=== PATIENT | female | born 1990 | race Caucasian/White ===

== ENCOUNTER 2017-12-01 14:23 | Inpatient (IN) | payer MEDICAID, OTHER ==
[~2017-12-01] VITALS: Ht 160 cm; Wt 54.7 kg
[2017-12-01] MEDS ORDERED: TRAZ-144 PO (14:33)
[2017-12-01] MEDS ORDERED: HYDR50CA10 PO (14:33)
[2017-12-01] MEDS ORDERED: OLAN5TAB2 PO (14:33)
[2017-12-01 14:54] LABS: ANION GAP 3 mmol/L (8-16); CALCIUM, TOTAL 8.6 mg/dL (8.8-10.5); CARBON DIOXIDE 30 mmol/L (22-29); CHLORIDE 103 mmol/L (98-107); CREATININE 0.96 mg/dL (0.60-1.30); GLOMERULAR FILTR. RATE CALC > 60 mL/min (>60); GLUCOSE,RANDOM 71 mg/dL (70-110); POTASSIUM 3.9 mmol/L (3.5-5.1); SODIUM SERUM 136 mmol/L (136-145); UREA NITROGEN, BLOOD 16 mg/dL (7-18)
[2017-12-01 15:03] LABS: ALANINE AMINOTRANSFERASE 24 U/L (12-78); ALBUMIN 3.5 g/dL (3.4-5.0); ALKALINE PHOSPHATASE 64 U/L (46-116); ASPARTATE AMINOTRANSFERASE 24 U/L (15-37); BILIRUBIN,TOTAL 0.3 mg/dL (0.1-1.0); TOTAL PROTEIN, SERUM 7.2 g/dL (6.4-8.2)
[2017-12-01 15:08] LABS: BASOPHILS % (AUTO) 0.9 % (0.0-2.0); EOSINOPHILS % (AUTO) 1.8 % (1.0-6.0); HEMATOCRIT 35.8 % (36-46); LYMPHOCYTES # (AUTO) 2.5 K/uL (1.0-4.8); LYMPHOCYTES % (AUTO) 38.7 % (22.0-44.0); MEAN CORPUSCULAR HEMOGLOBIN 28.9 pg (26.0-34.0); MEAN CORPUSCULAR HGB CONC 33.5 G/dL (31.0-37.0); MEAN CORPUSCULAR VOLUME 86 fL (80-100); MONOCYTES # (AUTO) 0.5 K/uL (0.1-1.0); MONOCYTES % (AUTO) 7.3 % (2.0-9.0); NEUTROPHILS # (AUTO) 3.3 K/uL (1.8-7.7); NEUTROPHILS % (AUTO) 51.3 % (40.0-70.0); PLATELET COUNT (AUTO) 232 K/uL (150-450); RED BLOOD CELL COUNT(AUTO) 4.15 MIL/uL (4.00-5.20); RED CELL DISTRIBUTION WIDTH 14.7 % (11.5-14.5)
[2017-12-01] MEDS ORDERED: HYOSCYAMINE SULFATE 0.125 MG DTAB PO ONE (15:30)
[2017-12-01] MEDS ORDERED: METOCLOPRAMIDE HCL 10 MG TABLET PO ONE (15:30)
[2017-12-01] MEDS ORDERED: HALOPERIDOL 5 MG TABLET PO PRN (15:45)
[2017-12-01] MEDS ORDERED: ZOLPIDEM TARTRATE 10 MG TABLET PO PRN (15:45)
[2017-12-01 16:02] LABS: AMPHET/METH SCREEN,URINE POSITIVE (NEGATIVE); BARBITURATE SCREEN, URINE NEGATIVE (NEGATIVE); BENZODIAZEPINES SCREEN,URINE NEGATIVE (NEGATIVE); CANNABINOID SCREEN,URINE POSITIVE (NEGATIVE); COCAINE SCREEN,URINE NEGATIVE (NEGATIVE); METHADONE SCREEN, URINE NEGATIVE (NEGATIVE); OPIATE SCREEN,URINE NEGATIVE (NEGATIVE)
[2017-12-01 16:04] LABS: PHENCYCLIDINE SCREEN,URINE NEGATIVE (NEGATIVE)
[2017-12-01 16:58] LABS: CHOL/HDL RATIO 1.8 (3.9-5.7); CHOLESTEROL 164 mg/dL (131-200); HDL CHOLESTEROL 90 mg/dL (40-60); LDL CHOL (CALC.) 63 mg/dL (0-130); TRIGLYCERIDES 57 mg/dL (15-150)
[2017-12-01 20:26] VITALS: BP 100/65
[2017-12-01] MEDS: OLANZapine 5 MG TABLET PO SCH (20:30)
[2017-12-01] MEDS: TraZODone HCL 50 MG TABLET PO SCH (20:30)
[2017-12-02 06:19] VITALS: BP 111/56
[2017-12-02] MEDS: LORazepam 2 MG TABLET PO PRN (11:18)
[2017-12-02 16:26] VITALS: BP 106/68
[2017-12-02] MEDS: OLANZapine 5 MG TABLET PO SCH (20:10)
[2017-12-02] MEDS: TraZODone HCL 50 MG TABLET PO SCH (20:10)
[2017-12-03] MEDS: LORazepam 2 MG TABLET PO PRN ×2 (08:11→18:04)
[2017-12-03 08:56] VITALS: BP 105/67
[2017-12-03 16:17] VITALS: BP 103/62
[2017-12-03 18:04] VITALS: BP 118/73
[2017-12-03] MEDS: TraZODone HCL 50 MG TABLET PO SCH (20:16)
[2017-12-03] MEDS: OLANZapine 5 MG TABLET PO SCH (20:16)
[2017-12-04 06:19] VITALS: BP 124/69
[2017-12-04 08:49] VITALS: BP 100/61
[2017-12-04] MEDS: LORazepam 2 MG TABLET PO PRN (10:10)
[2017-12-04] MEDS ORDERED: TRAZ-144 PO (12:19)
[2017-12-04] MEDS ORDERED: OLAN5TAB2 PO (12:19)
== END 2017-12-04 14:42 | disposition home or self-care (01) | DRG 750 ==
LOC: EEVIPCON 14:26 → EMS 14:26 → B2S 18:20
PROVIDERS: ADMIT Psychiatry & Neurology Psychiatry; ATTEND Psychiatry & Neurology Psychiatry
DX: F25.9 Schizoaffective disorder, unspecified (principal); I95.9 Hypotension, unspecified; R45.851 Suicidal ideations; F15.10 Other stimulant abuse, uncomplicated; F17.210 Nicotine dependence, cigarettes, uncomplicated; F31.9 Bipolar disorder, unspecified; F41.9 Anxiety disorder, unspecified; Z79.899 Other long term (current) drug therapy; Z71.51 Drug abuse counseling and surveillance of drug abuser; Z71.6 Tobacco abuse counseling
CPT/HCPCS: 87081; 99285; G0480

== ENCOUNTER 2018-10-03 18:10 | Inpatient (IN) | payer MEDICAID ==
[~2018-10-03] VITALS: Ht 162.6 cm; Wt 58.8 kg
[~2018-10-03 18:10] MED LIST: OLAN5TAB2 PO; TRAZ-219 PO
[2018-10-03] MEDS ORDERED: ZOLPIDEM TARTRATE 10 MG TABLET PO PRN (19:00)
[2018-10-03 19:23] LABS: BASOPHILS % (AUTO) 1.3 % (0.0-2.0); EOSINOPHILS % (AUTO) 2.2 % (1.0-6.0); HEMATOCRIT 34.6 % (36-46); HEMOGLOBIN 11.7 g/dL (12.0-16.0); LYMPHOCYTES # (AUTO) 2.6 K/uL (1.0-4.8); LYMPHOCYTES % (AUTO) 32.1 % (22.0-44.0); MEAN CORPUSCULAR HGB CONC 33.7 G/dL (31.0-37.0); MEAN CORPUSCULAR VOLUME 86 fL (80-100); MONOCYTES # (AUTO) 0.4 K/uL (0.1-1.0); MONOCYTES % (AUTO) 5.4 % (2.0-9.0); NEUTROPHILS # (AUTO) 4.7 K/uL (1.8-7.7); PLATELET COUNT (AUTO) 284 K/uL (150-450); RED BLOOD CELL COUNT(AUTO) 4.02 MIL/uL (4.00-5.20); RED CELL DISTRIBUTION WIDTH 14.3 % (11.5-14.5)
[2018-10-03 20:14] LABS: ANION GAP 9 mmol/L (8-16); CALCIUM, TOTAL 9.1 mg/dL (8.8-10.5); CARBON DIOXIDE 25 mmol/L (22-29); CHLORIDE 104 mmol/L (98-107); CREATININE 0.79 mg/dL (0.60-1.30); GLOMERULAR FILTR. RATE CALC > 60 mL/min (>60); GLUCOSE,RANDOM 95 mg/dL (70-110); POTASSIUM 3.9 mmol/L (3.5-5.1); SODIUM SERUM 138 mmol/L (136-145); UREA NITROGEN, BLOOD 9 mg/dL (7-18)
[2018-10-03] MEDS ORDERED: BACITRACIN 0.9 GM PACKET OINTMENT TP ONE (20:15)
[2018-10-03 20:21] LABS: ALANINE AMINOTRANSFERASE 15 U/L (12-78); ALBUMIN 3.7 g/dL (3.4-5.0); ALKALINE PHOSPHATASE 65 U/L (46-116); ASPARTATE AMINOTRANSFERASE 24 U/L (15-37); BILIRUBIN,TOTAL 0.3 mg/dL (0.1-1.0); TOTAL PROTEIN, SERUM 7.2 g/dL (6.4-8.2)
[2018-10-03 21:13] LABS: AMPHET/METH SCREEN,URINE NEGATIVE (NEGATIVE); BARBITURATE SCREEN, URINE NEGATIVE (NEGATIVE); BENZODIAZEPINES SCREEN,URINE NEGATIVE (NEGATIVE); CANNABINOID SCREEN,URINE POSITIVE (NEGATIVE); COCAINE SCREEN,URINE NEGATIVE (NEGATIVE); METHADONE SCREEN, URINE NEGATIVE (NEGATIVE); OPIATE SCREEN,URINE NEGATIVE (NEGATIVE)
[2018-10-03 21:17] LABS: PHENCYCLIDINE SCREEN,URINE NEGATIVE (NEGATIVE)
[2018-10-03 21:30] VITALS: BP 123/79
[2018-10-03] MEDS: OLANZapine 10 MG TABLET PO SCH (21:50)
[2018-10-04 06:54] LABS: BASOPHILS % (AUTO) 0.9 % (0.0-2.0); EOSINOPHILS % (AUTO) 2.7 % (1.0-6.0); HEMATOCRIT 35.7 % (36-46); HEMOGLOBIN 11.9 g/dL (12.0-16.0); LYMPHOCYTES # (AUTO) 1.8 K/uL (1.0-4.8); LYMPHOCYTES % (AUTO) 36.7 % (22.0-44.0); MEAN CORPUSCULAR HEMOGLOBIN 29.2 pg (26.0-34.0); MEAN CORPUSCULAR HGB CONC 33.4 G/dL (31.0-37.0); MEAN CORPUSCULAR VOLUME 88 fL (80-100); MONOCYTES # (AUTO) 0.3 K/uL (0.1-1.0); MONOCYTES % (AUTO) 6.9 % (2.0-9.0); NEUTROPHILS # (AUTO) 2.5 K/uL (1.8-7.7); NEUTROPHILS % (AUTO) 52.8 % (40.0-70.0); PLATELET COUNT (AUTO) 272 K/uL (150-450); RED BLOOD CELL COUNT(AUTO) 4.08 MIL/uL (4.00-5.20); RED CELL DISTRIBUTION WIDTH 14.3 % (11.5-14.5)
[2018-10-04 07:16] LABS: ALANINE AMINOTRANSFERASE 13 U/L (12-78); ALBUMIN 3.3 g/dL (3.4-5.0); ALKALINE PHOSPHATASE 59 U/L (46-116); ANION GAP 8 mmol/L (8-16); ASPARTATE AMINOTRANSFERASE 22 U/L (15-37); BILIRUBIN,TOTAL 0.6 mg/dL (0.1-1.0); CARBON DIOXIDE 28 mmol/L (22-29); CHLORIDE 102 mmol/L (98-107); CREATININE 0.89 mg/dL (0.60-1.30); FREE T4 (FREE THYROXINE) 0.93 ng/dL (0.76-1.46); GLOMERULAR FILTR. RATE CALC > 60 mL/min (>60); GLUCOSE,RANDOM 90 mg/dL (70-110); POTASSIUM 4.4 mmol/L (3.5-5.1); SODIUM SERUM 138 mmol/L (136-145); THYROID STIMULATING HORMONE 1.41 uIU/mL (0.36-3.74); TOTAL PROTEIN, SERUM 6.8 g/dL (6.4-8.2); UREA NITROGEN, BLOOD 10 mg/dL (7-18)
[2018-10-04 07:38] LABS: HCG,QUANTITATIVE < 1 mIU/mL (0-6)
[2018-10-04 08:05] VITALS: BP 125/77
[2018-10-04] MEDS: AMOX TR/POT CLAV 875 MG/125 MG TABLET PO SCH ×2 (09:37→17:32)
[2018-10-04] MEDS: SULFAMETHOX/TRIMETH DS 800-160 MG/TABLET PO SCH ×2 (09:37→17:31)
[2018-10-04] MEDS: PANTOPRAZOLE SODIUM 40 MG DR TABLET PO SCH (09:37)
[2018-10-04] MEDS: OLANZapine 5 MG RAPDIS TABLET PO PRN (11:19)
[2018-10-04] MEDS: LORazepam 2 MG TABLET PO PRN (11:19)
[2018-10-04] MEDS ORDERED: MAGNESIUM HYDROXIDE SUSPENSION 30 ML UDCUP PO PRN (12:45)
[2018-10-04] MEDS ORDERED: PROMETHAZINE HCL 25 MG TABLET PO PRN (12:45)
[2018-10-04] MEDS ORDERED: TUBERCULIN, PURIFIED PROTEIN DERIVATIVE 5 TU/0.1 ML SYG ID ONE (12:45)
[2018-10-04] MEDS ORDERED: ACETAMINOPHEN 325 MG TABLET PO PRN (12:45)
[2018-10-04] MEDS ORDERED: GuaiFENesin/D-METHORPHAN [SUGAR-FREE] 200-20MG/10 ML SYRUP UDCUP PO PRN (12:45)
[2018-10-04] MEDS ORDERED: HydrOXYzine PAMOATE 50 MG CAPSULE PO PRN (12:45)
[2018-10-04] MEDS ORDERED: LOPERAMIDE HCL 2 MG CAPSULE PO PRN (12:45)
[2018-10-04] MEDS ORDERED: MAG HYDROX/AL HYDROX/SIMETH ES 30 ML SUSPENSION UDCUP PO PRN (12:45)
[2018-10-04] MEDS: THIAMINE HCL 100 MG TABLET PO SCH (17:31)
[2018-10-04 17:38] VITALS: BP 129/61
[2018-10-04] MEDS: TraZODone HCL 150 MG TABLET PO SCH (20:26)
[2018-10-04] MEDS: OLANZapine 10 MG TABLET PO SCH (20:26)
[2018-10-05] MEDS ORDERED: FLUoxetine HCL 20 MG CAPSULE PO SCH (09:00)
[2018-10-05] MEDS: AMOX TR/POT CLAV 875 MG/125 MG TABLET PO SCH ×2 (10:06→16:10)
[2018-10-05] MEDS: MULTIVITAMINS WITH MINERALS, THERAPEUTIC TABLET PO SCH (10:06)
[2018-10-05] MEDS: GABAPENTIN 300 MG CAPSULE PO SCH ×3 (10:07→16:10)
[2018-10-05] MEDS: PANTOPRAZOLE SODIUM 40 MG DR TABLET PO SCH (10:07)
[2018-10-05] MEDS: THIAMINE HCL 100 MG TABLET PO SCH ×2 (10:07→16:11)
[2018-10-05] MEDS: NALTREXONE HCL 50 MG TABLET PO SCH (10:07)
[2018-10-05] MEDS: FOLIC ACID 1 MG TABLET PO SCH (10:07)
[2018-10-05] MEDS: SULFAMETHOX/TRIMETH DS 800-160 MG/TABLET PO SCH ×2 (10:08→16:10)
[2018-10-05 10:47] VITALS: BP 142/75
[2018-10-05] MEDS ORDERED: TRAZ150 PO (12:27)
[2018-10-05] MEDS ORDERED: OLAN7.5T9 PO (12:27)
[2018-10-05] MEDS ORDERED: NALT50TA PO (12:27)
[2018-10-05] MEDS ORDERED: GABA-531 PO (12:27)
[2018-10-05] MEDS: OLANZapine 5 MG RAPDIS TABLET PO PRN (12:57)
[2018-10-05] MEDS: LORazepam 2 MG TABLET PO PRN (12:57)
[2018-10-05] MEDS: TraZODone HCL 150 MG TABLET PO SCH (20:26)
[2018-10-05] MEDS ORDERED: OLANZapine 7.5 MG TABLET PO SCH (21:00)
[2018-10-06] MEDS: SULFAMETHOX/TRIMETH DS 800-160 MG/TABLET PO SCH (08:21)
[2018-10-06] MEDS: PANTOPRAZOLE SODIUM 40 MG DR TABLET PO SCH (08:21)
[2018-10-06] MEDS: MULTIVITAMINS WITH MINERALS, THERAPEUTIC TABLET PO SCH (08:21)
[2018-10-06] MEDS: FOLIC ACID 1 MG TABLET PO SCH (08:21)
[2018-10-06] MEDS: GABAPENTIN 300 MG CAPSULE PO SCH ×2 (08:21→13:17)
[2018-10-06] MEDS: NALTREXONE HCL 50 MG TABLET PO SCH (08:22)
[2018-10-06] MEDS: THIAMINE HCL 100 MG TABLET PO SCH (08:22)
[2018-10-06 08:33] VITALS: BP 127/78
[2018-10-06] MEDS ORDERED: PANT40TA25 PO (09:48)
== END 2018-10-06 15:05 | disposition home or self-care (01) | DRG 750 ==
LOC: EMS 18:11 → 3EI 20:34
PROVIDERS: ADMIT Psychiatry & Neurology Psychiatry; ATTEND Psychiatry & Neurology Psychiatry
DX: F25.9 Schizoaffective disorder, unspecified (principal); Z91.19 Patient's noncompliance with other medical treatment and regimen; D64.9 Anemia, unspecified; F17.210 Nicotine dependence, cigarettes, uncomplicated; K21.9 Gastro-esophageal reflux disease without esophagitis; F41.9 Anxiety disorder, unspecified; Z79.899 Other long term (current) drug therapy
CPT/HCPCS: 84436; 84439; 84443; G0480